=== PATIENT | male | born 1950 | race African-American/Black ===

== ENCOUNTER 2021-01-30 11:46 | Emergency (ER) | payer MEDICAID ==
[~2021-01-30] VITALS: Ht 175.3 cm; Wt 75.0 kg
[2021-01-30] MEDS ORDERED: TETANUS, DIPHTHERIA, PERTUSSIS VAC/PF 0.5ML (>10YR OLD) IM ONE (12:30)
[2021-01-30] MEDS ORDERED: BACITRACIN ZINC OINT UDPKT TOP ONE (12:30)
[2021-01-30] MEDS ORDERED: LIDOCAINE HCL/EPINEPHRINE 1%-EPI 1:100,000 20 ML VIAL INFIL ONE (12:30)
[2021-01-30] MEDS ORDERED: ACETAMINOPHEN 325MG TABLET PO ONE (12:30)
[2021-01-30] MEDS ORDERED: KETOROLAC 60MG/2ML VIAL IM ONE (13:45)
[2021-01-30] MEDS ORDERED: CEPH500C2 MT (14:57)
[2021-01-30] MEDS ORDERED: T3 PO (14:57)
[2021-01-30] MEDS ORDERED: IBUP-2029 MT (14:57)
[2021-01-30 15:24] VITALS: BP 131/77
== END 2021-01-30 15:27 | disposition home or self-care (01) ==
LOC: ER 11:46
DX: S09.8XXA Other specified injuries of head, initial encounter (principal); S01.81XA Laceration without foreign body of other part of head, initial encounter; S42.013A Anterior displaced fracture of sternal end of unspecified clavicle, initial encounter for closed fracture; Y08.89XA Assault by other specified means, initial encounter; Y93.9 Activity, unspecified; Y92.9 Unspecified place or not applicable; Z87.891 Personal history of nicotine dependence
CPT/HCPCS: 12004; 70450; 71045; 73000; 90471; 90715; 99284; J3490